=== PATIENT | male | born 1970 | race Caucasian/White ===

== ENCOUNTER → 2016-06-28 | Outpatient (CLI) | payer OTHER ==
--- NOTE | 2016-06-28 12:05 | DX ---
Chest, PA and Lateral Views - June 28, 2016, at 10:50 a.m. Clinical History: 45-year-old male with a cough for 2 week and hemoptysis for 2 days. ICD-10 Diagnostic Code: R04.2. Comparison Study: None. Findings: The cardiac silhouette is enlarged, with a C:T ratio of 20.0 : 38.0 cm. There is a mild deg ree of central perihilar bronchial wall thickening. There is no focal alveolar consolidation, pleural effusion, peripheral interstitial edema, or pneumothorax. The trachea is midline. Impression: 1. Mild cardiac silhouette enlargement. 2. Mild perihilar bronchial wall thickening, but no focal infiltrate.
== END ==
LOC: BRMIMAGING 10:46
PROVIDERS: ATTEND Physician Assistant Medical
DX: R04.2 Hemoptysis (principal); R05 Cough
CPT/HCPCS: 71020-PO